=== PATIENT | male | born 1955 | race African-American/Black ===

== ENCOUNTER 2019-01-02 12:08 | Emergency (ER) | payer MEDICARE ==
[~2019-01-02] VITALS: Ht 182.9 cm; Wt 101.6 kg
--- NOTE | 2019-01-02 14:31 | PHYS DOC ---
Past Medical History Past Medical History: GERD, High Cholesterol, Hypertension, Other Additional Past Medical Histor: gout,HERNIATED DISC Past Surgical History: Tonsillectomy Alcohol Use: None Drug Use: None Adult General Chief Complaint Chief Complaint: LOWER EXTREMITY SWELLING HPI HPI Patient is a 63 year old male who presents to the ED with a chief complaint of right lower extremity swelling and tenderness. Patient states that the symptoms have been present for the last 1 week. Patient also complains if shortness of breath, cough and chest pain. 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 Patient denies injury. Patient does say that he felt a knot in the back of his right knee and then there was increased swelling in the right lower extremity. Patient does say that his left lower extremity is also mildly swollen compared to previous. Patient denies recent travel. Patient denies smoking cigarettes, using alcohol or using drugs. Review of Systems Review of Systems Constitutional: Denies fever or chills HENT: Denies nasal congestion, sore throat, sinus tenderness Respiratory: Mild cough and SOB Cardiovascular: Denies CP GI: Denies abdominal pain, nausea, vomiting or diarrhea : Denies dysuria or hematuria Musculoskeletal: Right LLE swelling and pain Skin: Denies rash or skin lesions Neurologic: Denies headache, focal weakness or sensory changes Complete systems were reviewed and found to be within normal limits, except as documented in this note. Current Medications Current Medications Current Medications Medications (Trade) Dose Ordered Sig/Shazia Start Time Stop Time Status Last Admin Dose Admin Ibuprofen (Motrin) 600 mg 1X ONCE 01/02/19 15:30 01/02/19 15:31 DC 01/02/19 15:34 600 MG Allergies Allergies Allergies Coded Allergies Type Severity Reaction Last Updated Verified No Known Drug Allergies 04/24/14 No Physical Exam Physical Exam Constitutional: Well developed, well nourished, no acute distress, non-toxic appearance. HENT: Normocephalic, atraumatic, normocaphalic Eyes: PERRL, EOMI Neck: Normal range of motion, no tenderness, supple Cardiovascular:Heart rate regular rhythm, no murmur Resp: Bilateral breath sounds clear to auscultation Abdomen: Soft, no tenderness, no distension Skin: Warm, dry, no erythema, no rash. Back: No tenderness, no CVA tenderness. Extremities: ROM intact. Right LLE swelling and pain compared to left LE. pain in right calf Neurologic: Alert and oriented X 3, normal motor function, normal sensory function, no focal deficits noted. Psychologic: Affect normal, judgement normal, mood normal. Current Patient Data Vital Signs Vital Signs Date Time Temp Pulse Resp B/P (MAP) Pulse Ox O2 Delivery O2 Flow Rate FiO2 01/02/19 14:40 98.6 59 17 151/79 (103) 100 Room Air 98.6 Lab Values Laboratory Tests Test 01/02/19 14:45 White Blood Count 7.3 x10^3/uL (4.0-11.0) Red Blood Count 4.54 x10^6/uL (4.30-5.70) Hemoglobin 12.4 g/dL (13.0-17.5) L Hematocrit 37.3 % (39.0-53.0) L Mean Corpuscular Volume 82 fL (79-100) Mean Corpuscular Hemoglobin 27 pg (25-35) Mean Corpuscular Hemoglobin Concent 33 g/dL (31-37) Red Cell Distribution Width 14.0 % (11.5-14.5) Platelet Count 356 x10^3/uL (140-400) Neutrophils (%) (Auto) 68 % (31-73) Lymphocytes (%) (Auto) 22 % (24-48) L Monocytes (%) (Auto) 8 % (0-9) Eosinophils (%) (Auto) 1 % (0-3) Basophils (%) (Auto) 1 % (0-3) Neutrophils # (Auto) 5.0 x10^3uL (1.8-7.7) Lymphocytes # (Auto) 1.6 x10^3/uL (1.0-4.8) Monocytes # (Auto) 0.6 x10^3/uL (0.0-1.1) Eosinophils # (Auto) 0.0 x10^3/uL (0.0-0.7) Basophils # (Auto) 0.1 x10^3/uL (0.0-0.2) Prothrombin Time 13.8 SEC (11.7-14.0) Prothrombin Time INR 1.1 (0.8-1.1) Sodium Level 138 mmol/L (136-145) Potassium Level 3.9 mmol/L (3.5-5.1) Chloride Level 101 mmol/L (98-107) Carbon Dioxide Level 32 mmol/L (21-32) Anion Gap 5 (6-14) L Blood Urea Nitrogen 11 mg/dL (8-26) Creatinine 0.9 mg/dL (0.7-1.3) Estimated GFR (Cockcroft-Gault) 102.5 BUN/Creatinine Ratio 12 (6-20) Glucose Level 92 mg/dL (70-99) Calcium Level 9.5 mg/dL (8.5-10.1) Total Bilirubin 1.0 mg/dL (0.2-1.0) Aspartate Amino Transferase (AST) 15 U/L (15-37) Alanine Aminotransferase (ALT) 17 U/L (16-63) Alkaline Phosphatase 91 U/L (46-116) Total Protein 7.9 g/dL (6.4-8.2) Albumin 3.8 g/dL (3.4-5.0) Albumin/Globulin Ratio 0.9 (1.0-1.7) L Laboratory Tests 01/02/19 14:45 Laboratory Tests 01/02/19 14:45 EKG EKG [] Radiology/Procedures Radiology/Procedures [] Course & Med Decision Making Course & Med Decision Making Pertinent Labs and Imaging studies reviewed. (See chart for details) Ordered labs, chest x-ray, ultrasound of the right lower extremity to rule out DVT. CHEST PA LATERAL History: RIGHT LOWER EXTREMITY SWELLING, PAIN Comparison: November 24, 2008 Findings: 2 views of the chest are submitted. There is again granuloma of the superior right hemithorax. There is no lobar consolidation, pleural fluid, pneumothorax. Heart size is stable. There is again eventration of the right hemidiaphragm. Impression: 1. No acute radiographic abnormality is identified. Electronically signed by: Mehran Puente MD (01/02/2019 2:38 PM) [id number] EXAM: Right lower extremity venous Doppler sonogram. HISTORY: Pain and swelling. TECHNIQUE: Ring scale and color Doppler sonographic evaluation of the right lower extremity veins with spectral waveform analysis was performed. FINDINGS: There is normal color flow, normal compressibility and there are normal spectral waveforms in the common femoral, superficial femoral, popliteal, posterior tibial and greater saphenous veins. There is an 8.0 x 2.7 x 1.4 cm popliteal cyst. IMPRESSION: 1. No Doppler evidence of lower extremity deep venous thrombosis. 2. 8.0 cm right Brantley's cyst. Electronically signed by: Briana Gill MD (01/02/2019 2:46 PM) [id number] Ultrasound shows that patient has a right lower extremity Brantley's cyst that is 8 cm. Chest x-ray shows no acute disease. Labs are within normal limits. I discussed results and plan of care patient. Patient will be discharged home for outpatient follow-up. Appropriate discharge instructions given to patient. Dragon Disclaimer Dragon Disclaimer This electronic medical record was generated, in whole or in part, using a voice recognition dictation system. Departure Departure Disposition: 01 HOME, SELF-CARE Condition: STABLE Referrals: UNKNOWN PCP NAME (PCP) Follow-up in 1-2 days. Patient Instructions: Brantley's Cyst Additional Instructions: Please follow up with PCP in one to 2 days. Please return to ED if symptoms worsen or if any concerns. Scripts Hydrocodone/Apap 5-325 (NORCO 5-325 TABLET) 1 Each Tablet 1 EACH PO PRN Q6HRS PRN for PAIN for 3 Days, #15 as needed for pain Prov: BERTA INFANTE DO 01/02/19 BERTA INFANTE DO Jan 02, 2019 14:31
--- NOTE | 2019-01-02 14:41 | RAD ---
CHEST PA LATERAL History: RIGHT LOWER EXTREMITY SWELLING, PAIN Comparison: November 24, 2008 Findings: 2 views of the chest are submitted. There is again granuloma of the superior right hemithorax. There is no lobar consolidation, pleural fluid, pneumothorax. Heart size is stable. There is again eventration of the right hemidiaphragm. Impression: 1. No acute radiographic abnormality is identified. Electronically signed by: Mehran Puente MD (01/02/2019 2:38 PM) [id number]
--- NOTE | 2019-01-02 14:49 | RAD ---
EXAM: Right lower extremity venous Doppler sonogram. HISTORY: Pain and swelling. TECHNIQUE: Ring scale and color Doppler sonographic evaluation of the right lower extremity veins with spectral waveform analysis was performed. FINDINGS: There is normal color flow, normal compressibility and there are normal spectral waveforms in the common femoral, superficial femoral, popliteal, posterior tibial and greater saphenous veins. There is an 8.0 x 2.7 x 1.4 cm popliteal cyst. IMPRESSION: 1. No Doppler evidence of lower extremity deep venous thrombosis. 2. 8.0 cm right Brantley's cyst. Electronically signed by: Briana Gill MD (01/02/2019 2:46 PM) [place] [id number]
[2019-01-02 14:57] LABS: BASO # 0.1 x10^3/uL (0.0-0.2); BASO % 1 % (0-3); EOS % 1 % (0-3); HEMATOCRIT 37.3 % (39.0-53.0); HEMOGLOBIN 12.4 g/dL (13.0-17.5); LYMPH # 1.6 x10^3/uL (1.0-4.8); LYMPH % 22 % (24-48); MEAN CORPUSCULAR HEMOGLOBIN 27 pg (25-35); MEAN CORPUSCULAR HGB CONC 33 g/dL (31-37); MEAN CORPUSCULAR VOLUME 82 fL (79-100); MONO # 0.6 x10^3/uL (0.0-1.1); MONO % 8 % (0-9); NEUT % 68 % (31-73); PLATELET COUNT 356 x10^3/uL (140-400); RED BLOOD COUNT 4.54 x10^6/uL (4.30-5.70); WHITE BLOOD COUNT 7.3 x10^3/uL (4.0-11.0)
[2019-01-02 15:04] LABS: PROTHROMBIN TIME PATIENT 13.8 SEC (11.7-14.0)
[2019-01-02 15:15] LABS: CALCIUM 9.5 mg/dL (8.5-10.1); CREATININE 0.9 mg/dL (0.7-1.3); GFR 102.5; POTASSIUM 3.9 mmol/L (3.5-5.1)
[2019-01-02 15:21] LABS: ALBUMIN 3.8 g/dL (3.4-5.0); ALBUMIN/GLOBULIN RATIO 0.9 (1.0-1.7); TOTAL PROTEIN 7.9 g/dL (6.4-8.2)
[2019-01-02] MEDS ORDERED: IBUPROFEN 600 MG TABLET. PO ONE (15:30)
[2019-01-02] MEDS ORDERED: HYDR-3164 PO (15:34)
[2019-01-02 16:15] VITALS: BP 140/73
== END 2019-01-02 16:14 | disposition home or self-care (01) ==
LOC: ER 12:08
DX: M71.21 Synovial cyst of popliteal space [Baker], right knee (principal); M79.661 Pain in right lower leg; M79.604 Pain in right leg; M79.605 Pain in left leg; R05 Cough; R06.02 Shortness of breath; R07.89 Other chest pain; K21.9 Gastro-esophageal reflux disease without esophagitis; E78.00 Pure hypercholesterolemia, unspecified; I10 Essential (primary) hypertension; M10.9 Gout, unspecified
CPT/HCPCS: 36415; 71046; 80053; 83880; 85025; 85610; 93971; 99285-25

== ENCOUNTER 2019-05-09 15:30 | Emergency (ER) | payer MEDICARE ==
[~2019-05-09] VITALS: Ht 175.3 cm; Wt 102.1 kg
[~2019-05-09 15:30] MED LIST: HYDR-3164 PO
[2019-05-09] MEDS ORDERED: NITROGLYCERIN SUBLINGUAL 0.4 MG BOTTLE OF 25. SL PRN (15:45)
--- NOTE | 2019-05-09 15:53 | PHYS DOC ---
Past Medical History Past Medical History: GERD, High Cholesterol, Hypertension, Other Additional Past Medical Histor: gout,HERNIATED DISC Past Surgical History: Tonsillectomy Additional Past Surgical Histo: herniated disc Alcohol Use: None Drug Use: None Adult General Chief Complaint Chief Complaint: CHEST PAIN HPI HPI Patient is a 63 year old male with history of hypertension, high cholesterol, acid reflex, who presents to the ED today complaining of 10 out of 10 constant grabbing left-sided chest pain that began yesterday. 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 Patient denies the pain radiating to the chest. Denies anything specifically relieving the pain. He states he has had history of left breast swelling for years, he states he has already had a mammogram as well as multiple other tests which were negative. Review of Systems Review of Systems Constitutional: Denies fever or chills [] Eyes: Denies change in visual acuity, redness, or eye pain [] HENT: Denies nasal congestion or sore throat [] Respiratory: Denies cough or shortness of breath [] Cardiovascular: Reports left-sided chest pain GI: Denies abdominal pain, nausea, vomiting, bloody stools or diarrhea [] : Denies dysuria or hematuria [] Musculoskeletal: Denies back pain or joint pain [] Integument: Denies rash or skin lesions [] Neurologic: Denies headache, focal weakness or sensory changes [] All other systems were reviewed and found to be within normal limits, except as documented in this note. Current Medications Current Medications Current Medications Medications (Trade) Dose Ordered Sig/[facility] Start Time Stop Time Status Last Admin Dose Admin Aspirin (Roberta Aspirin) 325 mg 1X ONCE 05/09/19 16:30 05/09/19 16:31 DC Nitroglycerin (Nitrostat) 0.4 mg PRN Q5MIN PRN 05/09/19 15:45 05/10/19 15:44 05/09/19 16:07 0.4 MG Allergies Allergies Allergies Coded Allergies Type Severity Reaction Last Updated Verified No Known Drug Allergies 04/24/14 No Physical Exam Physical Exam Constitutional: Well developed, well nourished, no acute distress, non-toxic appearance. [] HENT: Normocephalic, atraumatic, bilateral external ears normal, oropharynx mois t, no oral exudates, nose normal. [] Eyes: PERRLA, EOMI, conjunctiva normal, no discharge. [] Neck: Normal range of motion, no tenderness, supple, no stridor. [] Cardiovascular:Heart rate regular rhythm, no murmur [] Lungs & Thorax: Bilateral breath sounds clear to auscultation [] Abdomen: Bowel sounds normal, soft, no tenderness, no masses, no pulsatile masses. [] Skin: Warm, dry, no erythema, no rash. Left breast appears bigger than the right. No palpable masses. Back: No tenderness, no CVA tenderness. [] Extremities: No tenderness, no cyanosis, no clubbing, ROM intact, no edema. [] Neurologic: Alert and oriented X 3, normal motor function, normal sensory function, no focal deficits noted. [] Psychologic: Affect normal, judgement normal, mood normal. [] Current Patient Data Vital Signs Vital Signs Date Time Temp Pulse Resp B/P (MAP) Pulse Ox O2 Delivery O2 Flow Rate FiO2 05/09/19 16:07 59 155/76 05/09/19 15:37 98.5 16 94 Room Air 98.5 Lab Values Laboratory Tests Test 05/09/19 16:00 White Blood Count 6.4 x10^3/uL (4.0-11.0) Red Blood Count 4.85 x10^6/uL (4.30-5.70) Hemoglobin 13.3 g/dL (13.0-17.5) Hematocrit 38.8 % (39.0-53.0) L Mean Corpuscular Volume 80 fL (79-100) Mean Corpuscular Hemoglobin 27 pg (25-35) Mean Corpuscular Hemoglobin Concent 34 g/dL (31-37) Red Cell Distribution Width 14.0 % (11.5-14.5) Platelet Count 289 x10^3/uL (140-400) Neutrophils (%) (Auto) 59 % (31-73) Lymphocytes (%) (Auto) 30 % (24-48) Monocytes (%) (Auto) 8 % (0-9) Eosinophils (%) (Auto) 1 % (0-3) Basophils (%) (Auto) 1 % (0-3) Neutrophils # (Auto) 3.8 x10^3uL (1.8-7.7) Lymphocytes # (Auto) 1.9 x10^3/uL (1.0-4.8) Monocytes # (Auto) 0.5 x10^3/uL (0.0-1.1) Eosinophils # (Auto) 0.1 x10^3/uL (0.0-0.7) Basophils # (Auto) 0.1 x10^3/uL (0.0-0.2) Prothrombin Time 13.6 SEC (11.7-14.0) Prothrombin Time INR 1.1 (0.8-1.1) PTT 30 SEC (24-38) Sodium Level 138 mmol/L (136-145) Potassium Level 3.5 mmol/L (3.5-5.1) Chloride Level 102 mmol/L (98-107) Carbon Dioxide Level 30 mmol/L (21-32) Anion Gap 6 (6-14) Blood Urea Nitrogen 13 mg/dL (8-26) Creatinine 1.0 mg/dL (0.7-1.3) Estimated GFR (Cockcroft-Gault) 90.7 BUN/Creatinine Ratio 13 (6-20) Glucose Level 98 mg/dL (70-99) Calcium Level 9.3 mg/dL (8.5-10.1) Magnesium Level 2.2 mg/dL (1.8-2.4) Total Bilirubin 0.6 mg/dL (0.2-1.0) Aspartate Amino Transferase (AST) 13 U/L (15-37) L Alanine Aminotransferase (ALT) 19 U/L (16-63) Alkaline Phosphatase 76 U/L (46-116) Creatine Kinase 130 U/L (39-308) Creatine Kinase MB (Mass) 1.2 ng/mL (0.0-3.6) Creatine Kinase MB Relative Index 0.9 % (0-4) Troponin I Quantitative < 0.017 ng/mL (0.000-0.055) ZS-Ive-T-Type Natriuretic Peptide 37 pg/mL (0-124) Total Protein 7.8 g/dL (6.4-8.2) Albumin 4.1 g/dL (3.4-5.0) Albumin/Globulin Ratio 1.1 (1.0-1.7) Thyroid Stimulating Hormone (TSH) 0.557 uIU/mL (0.358-3.74) Laboratory Tests 05/09/19 16:00 Laboratory Tests 05/09/19 16:00 EKG EKG 15:[address] Ramirez of sinus rhythm , HR 63 left ant. fac. block Radiology/Procedures Radiology/Procedures []PROCEDURE: PORTABLE CHEST 1V PORTABLE CHEST 1V Clinical Indication: Chest pain Comparison: Two-view chest 01/02/2019. Findings: The cardiomediastinal silhouette is normal. Calcified right hilar lymph nodes. Calcified granulomas right upper lung. Lungs are otherwise clear. Stable eventration right hemidiaphragm. There is no pneumothorax. No pleural effusion is appreciated. No acute bone abnormality. IMPRESSION: No acute cardiopulmonary process. Electronically signed by: Damion Nunez MD (05/09/2019 4:12 PM) [id number] DICTATED and SIGNED BY: DAMION NUNEZ MD DATE: 05/09/19 1612 Course & Med Decision Making Course & Med Decision Making Pertinent Labs and Imaging studies reviewed. (See chart for details) This is a 63-year-old male patient who presents to the ED today complaining of left-sided chest pain worse when he is lifting that began yesterday. Dragon Disclaimer Dragon Disclaimer This electronic medical record was generated, in whole or in part, using a voice recognition dictation system. This is a 63-year-old male patient presenting to the ED today with left-sided chest pain that began yesterday. Patient signed out AMA. He states he cannot be admitted in the hospital. He is alert and oriented �4, able to make his own decisions. I talked to him about the risk of leaving AMA including and disability as well as worsening condition. He was given a nutrient management specialist to follow-up with as an outpatient. The HEART Score for CP Pts HEART Score for Chest Pain: HEART Score for Chest Pain Response (Comments) Value History Moderately Suspicious 1 ECG Normal 0 Age > 65 2 Risk Factors 1 or 2 Risk Factors 1 Troponin < Normal Limit 0 Total 4 Risk Factors: Risk Factors: DM, Current or recent (<one month) smoker, HTN, HLP, family history of CAD, obesity. Risk Scores: Score 0 - 3: 2.5% MACE over next 6 weeks - Discharge Home Score 4 - 6: 20.3% MACE over next 6 weeks - Admit for Clinical Observation Score 7 - 10: 72.7% MACE over next 6 weeks - Early Invasive Strategies Departure Departure Impression: Primary Impression: Chest pain Disposition: 07 AGAINST MEDICAL ADVICE Condition: STABLE Referrals: MARIANA PAULINO MD (PCP) Problem Qualifiers Primary Impression: Chest pain Chest pain type: unspecified Qualified Codes: R07.9 - Chest pain, unspecified DIANNARIGO [employer] May 09, 2019 15:53
--- NOTE | 2019-05-09 16:15 | RAD ---
PORTABLE CHEST 1V Clinical Indication: Chest pain Comparison: Two-view chest 01/02/2019. Findings: The cardiomediastinal silhouette is normal. Calcified right hilar lymph nodes. Calcified granulomas right upper lung. Lungs are otherwise clear. Stable eventration right hemidiaphragm. There is no pneumothorax. No pleural effusion is appreciated. No acute bone abnormality. IMPRESSION: No acute cardiopulmonary process. Electronically signed by: Damion Nunez MD (05/09/2019 4:12 PM) [id number]
[2019-05-09 16:16] LABS: BASO # 0.1 x10^3/uL (0.0-0.2); BASO % 1 % (0-3); EOS # 0.1 x10^3/uL (0.0-0.7); EOS % 1 % (0-3); HEMATOCRIT 38.8 % (39.0-53.0); HEMOGLOBIN 13.3 g/dL (13.0-17.5); LYMPH # 1.9 x10^3/uL (1.0-4.8); LYMPH % 30 % (24-48); MEAN CORPUSCULAR HEMOGLOBIN 27 pg (25-35); MEAN CORPUSCULAR HGB CONC 34 g/dL (31-37); MEAN CORPUSCULAR VOLUME 80 fL (79-100); MONO # 0.5 x10^3/uL (0.0-1.1); MONO % 8 % (0-9); NEUT # 3.8 x10^3uL (1.8-7.7); NEUT % 59 % (31-73); PLATELET COUNT 289 x10^3/uL (140-400); RED BLOOD COUNT 4.85 x10^6/uL (4.30-5.70); WHITE BLOOD COUNT 6.4 x10^3/uL (4.0-11.0)
[2019-05-09 16:26] LABS: PROTHROMBIN TIME PATIENT 13.6 SEC (11.7-14.0)
[2019-05-09] MEDS ORDERED: ASPIRIN 325 MG TABLET PO ONE (16:30)
[2019-05-09 16:35] LABS: CALCIUM 9.3 mg/dL (8.5-10.1); GFR 90.7; POTASSIUM 3.5 mmol/L (3.5-5.1)
[2019-05-09 16:41] LABS: ALBUMIN 4.1 g/dL (3.4-5.0); ALBUMIN/GLOBULIN RATIO 1.1 (1.0-1.7); MAGNESIUM 2.2 mg/dL (1.8-2.4); TOTAL BILIRUBIN 0.6 mg/dL (0.2-1.0); TOTAL PROTEIN 7.8 g/dL (6.4-8.2)
[2019-05-09 17:05] VITALS: BP 126/74
--- NOTE | 2019-05-10 06:55 | EKG ---
[facility] [address] [place] [address] Test Date: 2019-05-09 Test Time: 15:40:15 Pat Name: MOE GRIFFITH Department: Room: Gender: M [employer]: : [id number] Requested By: RIGO BUSTAMANTE Order Number: [id number] Reading MD: Measurements Intervals [place] Rate: 63 P: 34 IA: 186 QRS: -21 QRSD: 110 T: 9 QT: 412 QTc: 425 Interpretive Statements SINUS RHYTHM LEFT ATRIAL ABNORMALITY LEFTWARD AXIS QRS(T) CONTOUR ABNORMALITY CONSIDER ANTEROSEPTAL MYOCARDIAL DAMAGE ABNORMAL ECG RI6.01 No previous ECG available for comparison
== END 2019-05-09 17:12 | disposition left against medical advice (07) ==
LOC: ER 15:30
DX: R07.89 Other chest pain (principal); E78.00 Pure hypercholesterolemia, unspecified; I10 Essential (primary) hypertension; K21.9 Gastro-esophageal reflux disease without esophagitis; M10.9 Gout, unspecified
CPT/HCPCS: 36415; 71045; 80053; 82553; 83735; 83880; 84443; 84484; 85025; 85610; 85730; 93005; 99285-25

== ENCOUNTER 2019-10-24 10:47 | Emergency (ER) | payer MEDICARE ==
[~2019-10-24] VITALS: Ht 175.3 cm; Wt 104.3 kg
[2019-10-24 11:16] VITALS: BP 168/88
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
[2019-10-24] MEDS ORDERED: NAPR-695 PO (12:38)
[2019-10-24] MEDS ORDERED: CYCL10TA2 PO (12:38)
== END 2019-10-24 12:47 | disposition home or self-care (01) ==
LOC: ER 10:47
DX: S16.1XXA Strain of muscle, fascia and tendon at neck level, initial encounter (principal); G44.059 Short lasting unilateral neuralgiform headache with conjunctival injection and tearing (SUNCT), not intractable; K21.9 Gastro-esophageal reflux disease without esophagitis; E78.00 Pure hypercholesterolemia, unspecified; I10 Essential (primary) hypertension; M25.532 Pain in left wrist; M25.531 Pain in right wrist; V43.52XA Car driver injured in collision with other type car in traffic accident, initial encounter; Y93.I9 Activity, other involving external motion; Y92.488 Other paved roadways as the place of occurrence of the external cause; Y99.8 Other external cause status
CPT/HCPCS: 70450; 72125; 99284-25

== ENCOUNTER 2019-11-03 10:46 | Emergency (ER) | payer MEDICARE ==
[~2019-11-03] VITALS: Ht 175.3 cm; Wt 102.2 kg
[~2019-11-03 10:46] MED LIST changes: +CYCL10TA2 PO; +NAPR-695 PO
[2019-11-03 10:56] VITALS: BP 158/81
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
[2019-11-03] MEDS ORDERED: HYDR-3164 PO (12:48)
[2019-11-03] MEDS ORDERED: CYCL10TA2 PO (12:48)
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
== END 2019-11-03 12:55 | disposition home or self-care (01) ==
LOC: ER 10:46
DX: M54.41 Lumbago with sciatica, right side (principal); G89.11 Acute pain due to trauma; M47.816 Spondylosis without myelopathy or radiculopathy, lumbar region; M54.6 Pain in thoracic spine; K21.9 Gastro-esophageal reflux disease without esophagitis; E78.00 Pure hypercholesterolemia, unspecified; I10 Essential (primary) hypertension; Z98.890 Other specified postprocedural states; V89.2XXA Person injured in unspecified motor-vehicle accident, traffic, initial encounter; Y93.89 Activity, other specified; Y92.488 Other paved roadways as the place of occurrence of the external cause; Y99.8 Other external cause status
CPT/HCPCS: 72128; 72131; 99284-25